=== PATIENT | male | born 1955 | race Hispanic/Latino ===

== ENCOUNTER 2016-09-24 14:01 | Observation (INO) | payer SELFPAY ==
[2016-09-24] MEDS ORDERED: Oxycodone/Acetaminophen 5/325 mg Tab PO STA (14:34)
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
[2016-09-24] MEDS ORDERED: Morphine 4 MG/ML VIAL IVP STA (15:10)
--- NOTE | 2016-09-24 15:15 | RAD ---
PROCEDURE: Radiographs of the chest and bilateral ribs HISTORY: fall injury COMPARISON: None available. TECHNIQUE: Frontal radiograph of the chest and multiple oblique radiographs of the bilateral ribs were obtained. FINDINGS: Examination limited by habitus. RIGHT RIBS: No appreciable acute displaced fracture. LEFT RIBS: No appreciable acute displaced fracture. LUNGS: Minimal left basilar atelectasis and/or trace pleural effusion. No definite pneumothorax. Please note that chest x-ray has limited sensitivity for the detection of pulmonary masses. CARDIOVASCULAR: Mild cardiomegaly. Atherosclerotic calcifications. Ectatic aorta. OTHER FINDINGS: Partially imaged moderate constipation. Degenerative changes of the spine. IMPRESSION: Minimal left basilar atelectasis and/or trace pleural effusion. No appreciable displaced rib fracture. Mild cardiomegaly. Ectatic aorta. Atherosclerotic calcifications. Partially imaged moderate constipation.
[2016-09-24 15:42] LABS: BASO % 0.8 % (0.0-2.0); HEMOGLOBIN 13.9 g/dL (12.0-18.0); LYMPH # 0.9 K/uL (1.0-4.3); LYMPH % 18.9 % (20.0-40.0); MEAN CELL VOLUME 88.9 fl (80.0-94.0); MEAN CORPUSCULAR HEMOGLOBIN 29.8 pg (27.0-31.0); MEAN CORPUSCULAR HGB CONC 33.5 g/dL (33.0-37.0); MEAN PLATELET VOLUME 8.2 fl (7.2-11.7); MONO # 0.6 K/uL (0.0-0.8); MONO % 13.7 % (0.0-10.0); NEUT # 2.9 K/uL (1.8-7.0); NEUT % 65.6 % (50.0-75.0); NRBC % 0.1 % (0.0-0.0); RBC 4.68 Mil/uL (4.40-5.90); RED CELL DISTRIBUTION WIDTH 13.4 % (11.5-14.5); WHITE BLOOD COUNT 4.5 K/uL (4.8-10.8)
[2016-09-24 15:48] LABS: SQUAMOUS EPITHIAL 1 /hpf (0-5); URINE BACTERIA RARE (<OCC); URINE BILIRUBIN NEGATIVE (NEGATIVE); URINE BLOOD NEGATIVE (NEGATIVE); URINE CLARITY SLIGHTY-CLOUDY (Clear); URINE COLOR AMBER (YELLOW); URINE GLUCOSE (UA) 50 mg/dL (Normal); URINE LEUKOCYTE ESTERASE NEG Leu/uL (Negative); URINE NITRATE NEGATIVE (NEGATIVE); URINE PROTEIN 100 mg/dL (NEGATIVE)
[2016-09-24 15:54] LABS: ALB/GLOB RATIO 1.2 (1.0-2.1); ALBUMIN 4.5 g/dL (3.5-5.0); ALT/SGPT 78 U/L (21-72); AST/SGOT 47 U/L (17-59); BLOOD UREA NITROGEN 16 mg/dl (9-20); CALCIUM 9.4 mg/dL (8.4-10.2); GFR AFRICAN-AMERICAN > 60; GFR NON-AFRICAN AMERICAN > 60
[2016-09-24] MEDS ORDERED: Sodium Chloride 0.9% 1,000 ML IV STA (15:58)
[2016-09-24] MEDS ORDERED: Iohexol 300 100 ML IJ ONE (16:10)
[2016-09-24] MEDS ORDERED: Sodium Chloride 0.9% 50 ML IV ONE (16:10)
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
--- NOTE | 2016-09-24 17:32 | CT ---
PROCEDURE: CT Abdomen and Pelvis with contrast HISTORY: left flank pain with bruising COMPARISON: None available. TECHNIQUE: Contrast dose: 98 cc Omnipaque Radiation dose: Total exam DLP = 1402.36 mGy-cm. This CT exam was performed using one or more of the following dose reduction techniques: Automated exposure control, adjustment of the mA and/or kV according to patient size, and/or use of iterative reconstruction technique. FINDINGS: LOWER THORAX: Small left pleural effusion. Patchy opacity at the left lung base may reflect pneumonia or atelectasis. No visible pneumothorax. Small hiatal hernia/distal esophageal wall thickening. LIVER: Diffuse hypoattenuation of the liver consistent with hepatic steatosis. Patchy hyperdensity at the hepatic dome, possibly region of focal fatty sparing (for example series 3, image 19). Underlying hyperdense or enhancing focus cannot be excluded. GALLBLADDER AND BILE DUCTS: Unremarkable. PANCREAS: Fatty atrophy of the pancreas. SPLEEN: Unremarkable. ADRENALS: Unremarkable. KIDNEYS AND URETERS: Region of diminished enhancement identified involving the left upper pole which may reflect pyelonephritis. Differential considerations include sequela of vascular insults/infarct or infiltrating process. Correlate clinically. Additionally, there is a 2.3 cm left and 7.7 cm right lower pole probable renal cyst. Additional too small to characterize left renal hypodensities. VASCULATURE: No aortic aneurysm. BOWEL: Stomach is nondistended. Lack of oral contrast limits evaluation for bowel pathology. Bowel loops appear within normal limits of caliber without evidence of obstruction. APPENDIX: No secondary signs of acute appendicitis. PERITONEUM: No significant free fluid. No definite free air. LYMPH NODES: No bulky adenopathy identified. BLADDER: Under distended urinary bladder appears otherwise grossly unremarkable. REPRODUCTIVE: The prostate gland measures approximately 3.6 x 4.0 cm. BONES: Degenerative changes of the spine. OTHER FINDINGS: Fat containing right inguinal hernia. Faint patchy probable contusion involving the soft tissues of the left flank. IMPRESSION: Region of diminished enhancement identified involving the left upper pole which may reflect pyelonephritis. Differential considerations include sequela of vascular insults/infarct or infiltrating process. Correlate clinically. Additionally, there is a 2.3 cm left and 7.7 cm right lower pole probable renal cyst. Additional too small to characterize left renal hypodensities. Diffuse hypoattenuation of the liver consistent with hepatic steatosis. Patchy hyperdensity at the hepatic dome, possibly region of focal fatty sparing. Underlying hyperdense or enhancing focus cannot be excluded. Small left pleural effusion. Patchy opacity at the left lung base may reflect pneumonia or atelectasis. Fat containing right inguinal hernia. Faint patchy probable contusion involving the soft tissues of the left flank. Additional findings as above.
[2016-09-24] MEDS ORDERED: cefTRIAXone (Rocephin) 1 gm Inj ONE (17:52)
--- NOTE | 2016-09-24 21:12 | US ---
PROCEDURE: Ultrasound of the Kidneys HISTORY: left flank pain COMPARISON: CT abdomen and pelvis with IV contrast performed 09/24/16 TECHNIQUE: Sonogram of the kidneys. FINDINGS: RIGHT KIDNEY: Measures: 9.6 x 4.7 x 4.9 cm. 8.1 x 7.5 x 8.2 cm anechoic avascular lesion at the right lower pole compatible with a cyst. No hydronephrosis or obstructing calculus identified. LEFT KIDNEY: Measures: 10.3 x 5.2 x 5.9 cm. 2.6 x 2.6 x 2.1 cm the left midpole probable cyst. No obstructing calculus or hydronephrosis identified. OTHER FINDINGS: None. IMPRESSION: Bilateral renal cysts. Abnormality demonstrated within the left upper pole by CT is not appreciated on limited sonographic views. Preliminary impression was provided by virtual radiologic.
[2016-09-24 22:11] VITALS: BP 148/85; PULSE 83; RESP 20; TEMP 98.1; O2SAT 91
--- NOTE | 2016-09-25 08:42 | CARD ---
APPROVED REPORT EKG Measurement Heart [id number] <Conclusion> Normal sinus rhythm Normal ECG
== END 2016-09-24 20:51 | disposition home or self-care (01) ==
LOC: H.ER 14:01 → H.EROBSV 20:03
PROVIDERS: ADMIT Emergency Medicine; ATTEND Emergency Medicine
DX: S80.211A Abrasion, right knee, initial encounter (principal); W01.0XXA Fall on same level from slipping, tripping and stumbling without subsequent striking against object, initial encounter; Y93.9 Activity, unspecified; Y92.9 Unspecified place or not applicable; Y99.9 Unspecified external cause status; F17.200 Nicotine dependence, unspecified, uncomplicated; I51.7 Cardiomegaly; K40.90 Unilateral inguinal hernia, without obstruction or gangrene, not specified as recurrent; K59.00 Constipation, unspecified; K76.0 Fatty (change of) liver, not elsewhere classified; N12 Tubulo-interstitial nephritis, not specified as acute or chronic; N28.1 Cyst of kidney, acquired; R05 Cough
CPT/HCPCS: 70450; 71111; 74177; 76770; 80053; 81003; 85025; 87086; 87491; 87591; 93005; 96361; 96365; 96375; 96376; 99284; G0378; J0696; J1170; J7040; Q9967